=== PATIENT | female | born 1965 | race African-American/Black ===

== ENCOUNTER 2018-03-28 19:33 | Emergency (ER) | payer OTHER, BC ==
[~2018-03-28] VITALS: Ht 162.6 cm; Wt 90.0 kg
[~2018-03-28 19:33] MED LIST: AMLODIPINE5 MG PO; AMOXICILLIN500 MG PO; FERROUS SULF324 MG PO; FLEXERIL OR; LOPRESSOR 550 MG/TAB PO; LORTAB 5/3255 MG PO; LOSARTAN POTASS50 MG PO; MICARDIS40 MG OR; NAPROXEN500 MG OR; NORVASC5 MG OR; ULTRAM50 MG PO
[2018-03-28] MEDS ORDERED: PROCARDIA XL30 MG PO (19:56)
[2018-03-28] MEDS ORDERED: XTAMPZA ER9 MG PO (19:57)
[2018-03-28] MEDS ORDERED: ATORVASTATIN CA40 MG PO (19:57)
[2018-03-28] MEDS ORDERED: OMEPRAZOLE20 M2 PO (19:58)
[2018-03-28] MEDS ORDERED: ESCITALOPRAM OX10 MG PO (19:59)
[2018-03-28] MEDS ORDERED: OXYCODONE HCL15 MG PO (20:00)
[2018-03-28] MEDS ORDERED: NEURONTIN300 MG PO (20:00)
[2018-03-28] MEDS ORDERED: HYDROCHLOROT12.5 M1 PO (20:02)
[2018-03-28] MEDS ORDERED: ADLT ASA LOW81 MG PO (20:02)
[2018-03-28 21:30] VITALS: BP 160/84
== END 2018-03-28 21:30 | disposition home or self-care (01) | DRG 914 ==
LOC: ED 19:33
DX: T14.8XXA Other injury of unspecified body region, initial encounter (principal); I10 Essential (primary) hypertension; M19.90 Unspecified osteoarthritis, unspecified site; V44.5XXA Car driver injured in collision with heavy transport vehicle or bus in traffic accident, initial encounter

== ENCOUNTER 2018-06-01 10:48 | Emergency (ER) | payer BC ==
[~2018-06-01] VITALS: Ht 162.6 cm; Wt 129.5 kg
[~2018-06-01 10:48] MED LIST changes: +ADLT ASA LOW81 MG PO; +ATORVASTATIN CA40 MG PO; +ESCITALOPRAM OX10 MG PO; +HYDROCHLOROT12.5 M1 PO; +NEURONTIN300 MG PO; +OMEPRAZOLE20 M2 PO; +OXYCODONE HCL15 MG PO; +PROCARDIA XL30 MG PO; +XTAMPZA ER9 MG PO
[2018-06-01 11:38] LABS: ALBUMIN 4.3 g/dL (3.2-5.0); ALKALINE PHOSPHATASE 147 u/l (38-126); ANION GAP 12 (6-22 (CALC)); BILIRUBIN, TOTAL 0.8 mg/dL (0.0-1.4); BUN 19 mg/dL (7-17); BUN/CREATININE RATIO 18 (12-20 (CALC)); CARBON DIOXIDE 27 mmol/l (22-30); CHLORIDE 105 mmol/l (95-108); GFR 58 ML/MIN (>=60 (CALC)); GFR FOR AFR.AMER. > 60 ML/MIN (>=60 (CALC)); POTASSIUM 4.2 mmol/l (3.5-5.1); SGOT/AST 32 u/l (14-36); SGPT/ALT 30 u/l (9-52); SODIUM 140 mmol/l (137-146); TOTAL PROTEIN 8.9 g/dL (6.3-8.2)
[2018-06-01 11:39] LABS: HEMATOCRIT 43.8 % (37.0-47.0); HEMOGLOBIN 13.2 g/dl (12.0-16.0); IMMATURE GRANULOCYTES 0.4 % (0.0-5.0); MEAN CELL VOLUME 79.6 fL CALC (80.0-100.0); MEAN CORPUSCULAR HGB CONC 30.1 g/L CALC (32.0-36.0); NEUT# 4.74 thou/uL (2.00-7.15); RED BLOOD COUNT 5.5 mill/uL (4.20-5.60); RED CELL DISTRI WIDTH 19.3 % (11.5-15.5)
[2018-06-01 11:43] LABS: INFLUENZA A NONE DETECTED (NONE DETECT); INFLUENZA B NONE DETECTED (NONE DETECT)
[2018-06-01] MEDS ORDERED: FLONASE AL50 MCG/ACT (12:39)
[2018-06-01] MEDS ORDERED: CEPHALEXIN500 M1 PO (12:39)
[2018-06-01] MEDS ORDERED: ROBITUSSIN AC10 ML PO (12:39)
[2018-06-01 12:43] VITALS: BP 130/72
== END 2018-06-01 12:48 | disposition home or self-care (01) | DRG 153 ==
LOC: ED 10:48
PROVIDERS: Emergency Medicine
DX: J06.9 Acute upper respiratory infection, unspecified (principal); J02.9 Acute pharyngitis, unspecified; I10 Essential (primary) hypertension; M19.90 Unspecified osteoarthritis, unspecified site; Z86.73 Personal history of transient ischemic attack (TIA), and cerebral infarction without residual deficits

== ENCOUNTER 2023-02-04 09:51 | Day surgery (SDC) | payer MEDICARE ==
[~2023-02-04] VITALS: Ht 160 cm; Wt 124.7 kg
[~2023-02-04 09:51] MED LIST changes: +CEPHALEXIN500 M1 PO; +FLONASE AL50 MCG/ACT; +IRON28 M1 PO; +METOPROL TAR25 MG PO; +PLAVIX75 MG PO; +PROTONIX40 M2 PO; +ROBITUSSIN AC10 ML PO
[2023-02-04 13:03] VITALS: BP 144/86
== END 2023-02-04 12:45 | disposition home or self-care (01) ==
LOC: ENDO 09:51
PROVIDERS: ATTEND Internal Medicine Gastroenterology
PROC: 0DBN8ZX Excision of Sigmoid Colon, Via Natural or Artificial Opening Endoscopic, Diagnostic (ICD-10-PCS; principal; 2023-02-04)
PROC: 0DB78ZX Excision of Stomach, Pylorus, Via Natural or Artificial Opening Endoscopic, Diagnostic (ICD-10-PCS; 2023-02-04)
DX: Z12.11 Encounter for screening for malignant neoplasm of colon (principal); D12.5 Benign neoplasm of sigmoid colon; K63.5 Polyp of colon; K64.8 Other hemorrhoids; K29.50 Unspecified chronic gastritis without bleeding; I10 Essential (primary) hypertension; E78.5 Hyperlipidemia, unspecified; Z79.02 Long term (current) use of antithrombotics/antiplatelets; Z79.899 Other long term (current) drug therapy